=== PATIENT | female | born 1995 | race African-American/Black ===

== ENCOUNTER 2019-05-04 10:47 | Emergency (ER) | payer SELFPAY ==
--- NOTE | 2019-05-04 13:01 | ER ---
Nurse's Notes [facility] Name: Domitila Gomez Age: 23 yrs Sex: Female : 1995 Arrival Date: 05/04/2019 Time: 10:50 Bed Treatment Private MD: Diagnosis: Acute pharyngitis;Otitis media, unspecified, left ear Presentation: 05/04 11:13 Presenting complaint: Patient states: left ear pain, sore throat x 4 days. Transition sv of care: patient was not received from another setting of care. Onset of symptoms was April 30, 2019. Risk Assessment: Do you want to hurt yourself or someone else? Patient reports no desire to harm self or others. Care prior to arrival: Medication(s) given: OTC ear drops placed last night. 11:13 Method Of Arrival: Ambulatory sv 11:13 Acuity: OSMIN 4 sv 11:59 Initial Sepsis Screen: Does the patient meet any 2 criteria? No. Patient's initial tw2 sepsis screen is negative. Does the patient have a suspected source of infection? No. Patient's initial sepsis screen is negative. Triage Assessment: 11:15 General: Appears in no apparent distress. uncomfortable, well developed, Behavior is sv calm, cooperative, appropriate for age. Pain: Complains of pain in left ear and throat Pain currently is 7 out of 10 on a pain scale. EENT: Reports pain in throat and left ear. Neuro: Level of Consciousness is awake, alert, obeys commands, Oriented to person, place, time, situation, Gait is steady. Respiratory: Respiratory effort is even, unlabored, Respiratory pattern is regular, symmetrical. 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 - Social history:: Smoking status: Patient/guardian denies using tobacco. - Ebola Screening: : No symptoms or risks identified at this time. Screenin:00 Abuse screen: Denies threats or abuse. Nutritional screening: No deficits noted. tw2 Tuberculosis screening: No symptoms or risk factors identified. Fall Risk None identified. Assessment: 11:59 General: Appears in no apparent distress. Behavior is calm, cooperative, appropriate tw2 for age. Pain: Complains of pain in right ear, left ear, uvula, left aspect of posterior pharynx and right aspect of posterior pharynx. Cardiovascular: Patient's skin is warm and dry. Respiratory: Airway is patent Respiratory effort is even, unlabored, Respiratory pattern is regular, symmetrical, Breath sounds are clear bilaterally. EENT: Throat is reddened Reports pain in left ear and right ear. Vital Signs: 11:14 BP 129 / 81; Pulse 85; Resp 16; Temp 98.2; Pulse Ox 100% ; Weight 72.57 kg; Height 5 sv ft. 4 in. (162.56 cm); Pain 7/10; 11:14 Body Mass Index 27.46 (72.57 kg, 162.56 cm) sv ED Course: 10:50 Patient arrived in ED. as 11:14 Triage completed. sv 11:15 Arm band placed on. sv 11:46 Bed in low position. Call light in reach. tw2 11:57 Heather Gao RN is Primary Nurse. tw2 12:03 Juni Leonardo NP is PHCP. pm1 12:03 Eddie Landry MD is Attending Physician. pm1 13:11 No provider procedures requiring assistance completed. Patient did not have IV access tw2 during this emergency room visit. Administered Medications: No medications were administered Outcome: 13:00 Discharge ordered by . pm1 13:11 Discharged to home ambulatory. tw2 13:11 Condition: stable 13:11 Discharge instructions given to patient, Instructed on discharge instructions, follow up and referral plans. medication usage, Demonstrated understanding of instructions, follow-up care, medications, Prescriptions given X 1. 13:11 Patient left the ED. tw2 Signatures: Guerline Doll RN RN sv Martinez, Amelia as Juni Leonardo NP TURNER SPLITTER MACHINE OPERATOR pm1 Heather Gao RN RN tw2
--- NOTE | 2019-05-04 13:01 | EDPHYS ---
Physician Documentation [facility] Name: Domitila Gomez Age: 23 yrs Sex: Female : 1995 Arrival Date: 05/04/2019 Time: 10:50 Bed Treatment Private MD: ED Physician Eddie Landry HPI: 05/04 12:09 This 23 yrs old Black Female presents to ER via Ambulatory with complaints of Sore pm1 Throat, Ear Pain. 12:09 The patient presents with sore throat. The patient describes throat pain as raw, pm1 scratchy. Onset: The symptoms/episode began/occurred 4 day(s) ago. Severity of symptoms: in the emergency department the symptoms are unchanged. Modifying factors: The symptoms are alleviated by nothing, the symptoms are aggravated by foods, swallowing. Associated signs and symptoms: Pertinent positives: earache. The patient has not experienced similar symptoms in the past. The patient has not recently seen a physician. 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 - Social history:: Smoking status: Patient/guardian denies using tobacco. - Ebola Screening: : No symptoms or risks identified at this time. ROS: 12:09 Constitutional: Negative for fever, chills, and weight loss, Eyes: Negative for injury, pm1 pain, redness, and discharge. 12:09 Neck: Negative for injury, pain, and swelling, Cardiovascular: Negative for chest pain, palpitations, and edema, Respiratory: Negative for shortness of breath, cough, wheezing, and pleuritic chest pain, Abdomen/GI: Negative for abdominal pain, nausea, vomiting, diarrhea, and constipation, Back: Negative for injury and pain, MS/Extremity: Negative for injury and deformity, Skin: Negative for injury, rash, and discoloration, Neuro: Negative for headache, weakness, numbness, tingling, and seizure. 12:09 ENT: Positive for ear pain, sore throat. Exam: 12:09 Constitutional: This is a well developed, well nourished patient who is awake, alert, pm1 and in no acute distress. Head/Face: Normocephalic, atraumatic. Eyes: Pupils equal round and reactive to light, extra-ocular motions intact. Lids and lashes normal. Conjunctiva and sclera are non-icteric and not injected. Cornea within normal limits. Periorbital areas with no swelling, redness, or edema. 12:09 Neck: Trachea midline, no thyromegaly or masses palpated, and no cervical lymphadenopathy. Supple, full range of motion without nuchal rigidity, or vertebral point tenderness. No Meningismus. Chest/axilla: Normal chest wall appearance and motion. Nontender with no deformity. No lesions are appreciated. Cardiovascular: Regular rate and rhythm with a normal S1 and S2. No gallops, murmurs, or rubs. Normal PMI, no JVD. No pulse deficits. Respiratory: Lungs have equal breath sounds bilaterally, clear to auscultation and percussion. No rales, rhonchi or wheezes noted. No increased work of breathing, no retractions or nasal flaring. Abdomen/GI: Soft, non-tender, with normal bowel sounds. No distension or tympany. No guarding or rebound. No evidence of tenderness throughout. Back: No spinal tenderness. No costovertebral tenderness. Full range of motion. Skin: Warm, dry with normal turgor. Normal color with no rashes, no lesions, and no evidence of cellulitis. MS/ Extremity: Pulses equal, no cyanosis. Neurovascular intact. Full, normal range of motion. 12:09 ENT: External ear(s): are unremarkable, Ear canal(s): are normal, TM's: bulging, on the left, erythema, on the left, Examination of the other ear shows no obvious abnormality, Mouth: is normal, Posterior pharynx: is normal, Tonsils: are normal in appearance, Uvula: normal, erythema, is not appreciated, peritonsillar mass, is not appreciated, pooling of secretions, is not appreciated. 12:09 Neuro: Orientation: is normal, Motor: is normal, moves all fours. Vital Signs: 11:14 BP 129 / 81; Pulse 85; Resp 16; Temp 98.2; Pulse Ox 100% ; Weight 72.57 kg; Height 5 sv ft. 4 in. (162.56 cm); Pain 7/10; 11:14 Body Mass Index 27.46 (72.57 kg, 162.56 cm) MDM: 12:03 Patient medically screened. pm1 12:59 Data reviewed: vital signs. Data interpreted: Pulse oximetry: on room air is 100 %. pm1 Interpretation: normal. Counseling: I had a detailed discussion with the patient and/or guardian regarding: the historical points, exam findings, and any diagnostic results supporting the discharge/admit diagnosis, the need for outpatient follow up, to return to the emergency department if symptoms worsen or persist or if there are any questions or concerns that arise at home. 05/04 12:03 Order name: Strep; Complete Time: 13:08 pm1 05/04 13:08 Order name: Throat Culture EDMS Administered Medications: No medications were administered Disposition: 05/05 06:59 Co-signature as Attending Physician, Eddie Landry MD I agree with the assessment and fariha plan of care. Disposition: 05/04/19 13:00 Discharged to Home. Impression: Acute pharyngitis, Otitis media, unspecified, left ear. - Condition is Stable. - Discharge Instructions: Otitis Media, Adult, Pharyngitis. - Prescriptions for Zithromax Z- Krishna 250 mg Oral Tablet - take 1 tablet by ORAL route as directed for 5 days Day 1 - take two (2) tablets one time. Day 2, 3, 4 , 5 take one (1) tablet once daily.; 6 tablet. - Medication Reconciliation Form, Thank You Letter, Antibiotic Education, Prescription Opioid Use, Work release form form. - Follow up: Emergency Department; When: As needed; Reason: Worsening of condition. Follow up: Private Physician; When: 2 - 3 days; Reason: Recheck today's complaints, Continuance of care, Re-evaluation by your physician. - Problem is new. - Symptoms have improved. Signatures: Dispatcher [employer] EDGuerline Pearl RN RN sv Anderson, Corey, MD MD cha Marinas, Patrick, AMY BROOM WORKER pm1 Heather Gao RN RN tw2 Corrections: (The following items were deleted from the chart) 05/04 13:11 13:00 05/04/2019 13:00 Discharged to Home. Impression: Acute pharyngitis; Otitis media, tw2 unspecified, left ear. Condition is Stable. Forms are Work release form, Medication Reconciliation Form, Thank You Letter, Antibiotic Education, Prescription Opioid Use. Follow up: Emergency Department; When: As needed; Reason: Worsening of condition. Follow up: Private Physician; When: 2 - 3 days; Reason: Recheck today's complaints, Continuance of care, Re-evaluation by your physician. Problem is new. Symptoms have improved. pm1
[2019-05-04 13:30] VITALS: BP 129/81; TEMP 98.2; O2SAT 100
== END 2019-05-04 13:11 | disposition home or self-care (01) ==
LOC: ER 10:47
DX: J02.9 Acute pharyngitis, unspecified (principal); H66.92 Otitis media, unspecified, left ear
CPT/HCPCS: 87070; 87081; 99282